=== PATIENT | male | born 1965 | race Caucasian/White ===

== ENCOUNTER 2023-03-09 05:26 | Emergency (ER) | payer BC ==
[~2023-03-09] VITALS: Ht 172.7 cm; Wt 105.1 kg
[2023-03-09 05:44] VITALS: TEMP 98.6
[2023-03-09] MEDS ORDERED: atenolol 25mg tablet PO ONE (08:20)
[2023-03-09 08:26] LABS: BASOPHILS % (AUTO) 0.9 % (0-1); EOSINOPHILS # (AUTO) 0.1 X10'3 (0-0.9); EOSINOPHILS % (AUTO) 3.1 % (0-6); HEMOGLOBIN 15.2 g/dl (14.0-17.9); LYMPHOCYTES # (AUTO) 1.3 X10'3 (1.1-4.8); LYMPHOCYTES % (AUTO) 28.1 % (21-51); MEAN CORPUSCULAR HEMOGLOBIN 29.6 PG (27.0-31.0); MEAN CORPUSCULAR HGB CONC 33.8 g/dL (33.0-36.5); MEAN CORPUSCULAR VOLUME 87.7 FL (78-98); MEAN PLATELET VOLUME 7.5 FL (7.4-10.4); MONOCYTES # (AUTO) 0.5 X10'3 (0-0.9); MONOCYTES % (AUTO) 10.6 % (2-12); NEUTROPHILS # (AUTO) 2.6 X10'3 (1.8-7.7); NEUTROPHILS % (AUTO) 57.3 % (42-75); PLATELET COUNT 318 X10'3 (140-440); RED BLOOD COUNT 5.13 X10'6 (4.70-6.10); RED CELL DISTRIBUTION WIDTH 13.4 % (11.5-14.5); WHITE BLOOD COUNT 4.6 X10'3 (4.5-11.0)
[2023-03-09 08:41] LABS: ALANINE AMINOTRANSFERASE 48 U/L (12-78); ALBUMIN 3.8 G/DL (3.4-5.0); ALBUMIN/GLOBULIN RATIO 0.9 (1.1-1.5); ALKALINE PHOSPHATASE 112 IU/L (46-116); ANION GAP 8 (8-16); ASPARTATE AMINO TRANSFERASE 28 U/L (10-37); BILIRUBIN,TOTAL 0.6 MG/DL (0.1-1.0); BLOOD UREA NITROGEN 14 MG/DL (7-18); BUN/CREATININE RATIO 13.1 (10.0-20.0); CALCIUM 9.2 MG/DL (8.5-10.1); CHLORIDE 105 MMOL/L (99-107); CREATININE 1.07 MG/DL (0.60-1.10); GLUCOSE 146 MG/DL (70-104); SODIUM 141 MMOL/L (135-145); TOTAL CARBON DIOXIDE 27.6 MMOL/L (24-32); TOTAL PROTEIN 8.2 G/DL (6.4-8.2); eCRCL 75 ML/MIN; eGFR 71 ML/MIN
[2023-03-09 08:48] LABS: PRO BRAIN NATRIURETIC PEPTIDE < 30 PG/ML (0-125)
[2023-03-09 09:16] VITALS: BP 149/90; PULSE 77; RESP 18; O2SAT 97
== END 2023-03-09 09:16 | disposition home or self-care (01) ==
LOC: ER 05:29
DX: R00.2 Palpitations (principal)
CPT/HCPCS: 36415; 71045; 80053; 83880; 84484; 85025; 93005; 99285

== ENCOUNTER 2023-03-27 05:53 | Day surgery (SDC) | payer BC ==
[2023-03-26 08:50] LABS: BASOPHILS % (AUTO) 0.9 % (0-1); EOSINOPHILS # (AUTO) 0.1 X10'3 (0-0.9); EOSINOPHILS % (AUTO) 2.7 % (0-6); HEMATOCRIT 46.3 % (42.0-52.0); HEMOGLOBIN 15.5 g/dl (14.0-17.9); LYMPHOCYTES # (AUTO) 1.1 X10'3 (1.1-4.8); LYMPHOCYTES % (AUTO) 25.4 % (21-51); MEAN CORPUSCULAR HEMOGLOBIN 29.5 PG (27.0-31.0); MEAN CORPUSCULAR HGB CONC 33.5 g/dL (33.0-36.5); MEAN CORPUSCULAR VOLUME 88.1 FL (78-98); MEAN PLATELET VOLUME 7.4 FL (7.4-10.4); MONOCYTES # (AUTO) 0.7 X10'3 (0-0.9); MONOCYTES % (AUTO) 16.3 % (2-12); NEUTROPHILS # (AUTO) 2.4 X10'3 (1.8-7.7); NEUTROPHILS % (AUTO) 54.7 % (42-75); PLATELET COUNT 261 X10'3 (140-440); RED BLOOD COUNT 5.26 X10'6 (4.70-6.10); WHITE BLOOD COUNT 4.3 X10'3 (4.5-11.0)
[2023-03-26 09:00] LABS: ALBUMIN 4.1 G/DL (3.4-5.0); ANION GAP 10 (8-16); BLOOD UREA NITROGEN 12 MG/DL (7-18); BUN/CREATININE RATIO 12.9 (10.0-20.0); CALCIUM 9.3 MG/DL (8.5-10.1); CHLORIDE 105 MMOL/L (99-107); CREATININE 0.93 MG/DL (0.60-1.10); GLUCOSE 132 MG/DL (70-104); POTASSIUM 4.3 MMOL/L (3.5-5.1); SODIUM 143 MMOL/L (135-145); TOTAL CARBON DIOXIDE 27.9 MMOL/L (24-32); eGFR 84 ML/MIN
[2023-03-26 09:04] LABS: APTT 27 SECONDS (22-32); INR 1.1 INR; PROTHROMBIN TIME 11.9 SECONDS (9.0-12.0)
[2023-03-26 10:18] LABS: PLATELET ESTIMATE NORMAL; TOTAL CELLS COUNTED 100
[2023-03-27] VITALS (11 sets, daily range): BP systolic 126–159; BP diastolic 79–95; PULSE 77–97; RESP 13–16; TEMP 98; O2SAT 93–98
[2023-03-27] MEDS ORDERED: normal saline 1,000 ML IV SCH (06:25)
[2023-03-27] MEDS ORDERED: diphenhydrAMINE 25mg capsule PO PRN (06:25)
[2023-03-27] MEDS ORDERED: DILT120C77 PO (06:29)
[2023-03-27] MEDS ORDERED: DIPH25CA83 PO (06:29)
[2023-03-27] MEDS ORDERED: FAMO20TA8 PO (06:29)
[2023-03-27] MEDS ORDERED: PRED20TA PO (06:29)
[2023-03-27] MEDS ORDERED: ROSU20TA73 PO (06:29)
[2023-03-27] MEDS ORDERED: ATEN25TA PO (06:29)
[2023-03-27] MEDS: LORazepam 0.5 MG tablet PO PRN (06:54)
[2023-03-27] MEDS: hydrocortisone sod succ/PF 100mg/2ml inj. IV PRN (07:12)
[2023-03-27] MEDS ORDERED: LIDOcaine 1% (10mg/ml) 2ml vial ONE (07:30)
[2023-03-27] MEDS ORDERED: iohexol 350MG/ML 100ml bottle IV ONE (07:31)
[2023-03-27] MEDS ORDERED: midazolam 1 mg/ML 2ml injection ONE ×2 (07:31→08:23)
[2023-03-27] MEDS ORDERED: fentaNYL/PF 50MCG/1 ML 2ML syringe ONE ×2 (07:31→08:23)
[2023-03-27] MEDS ORDERED: nitroGLYCERIN 500mcg/5mL D5W 5 ML IV ONE (07:31)
[2023-03-27] MEDS ORDERED: heparin 1,000unit/ml 10ml vial 10 ML ONE (07:31)
[2023-03-27] MEDS ORDERED: iohexol 350 MG/ML 50ML vial IV ONE (07:31)
[2023-03-27] MEDS ORDERED: verapamil 2.5 mg/ml inj IV ONE (07:31)
[2023-03-27] MEDS ORDERED: normal saline 1000ml 1,000 ML IV SCH (10:00)
== END 2023-03-27 13:20 | disposition home or self-care (01) ==
LOC: SSTAY O 05:53
PROVIDERS: ATTEND Internal Medicine Cardiovascular Disease
DX: R94.39 Abnormal result of other cardiovascular function study (principal); I25.10 Atherosclerotic heart disease of native coronary artery without angina pectoris; I10 Essential (primary) hypertension; I47.10 Supraventricular tachycardia, unspecified; E78.5 Hyperlipidemia, unspecified; Z96.643 Presence of artificial hip joint, bilateral; Z79.82 Long term (current) use of aspirin; Z79.899 Other long term (current) drug therapy; Z90.49 Acquired absence of other specified parts of digestive tract; Z98.890 Other specified postprocedural states; Z72.89 Other problems related to lifestyle; Z88.2 Allergy status to sulfonamides; Z91.041 Radiographic dye allergy status; Z79.01 Long term (current) use of anticoagulants
CPT/HCPCS: 36415; 80048; 85025; 85610; 85730; 93005; 93458; 99152; 99153; J1644; J1720; J2250; J3010; J3490; J7030; Q9967; 85007; A4615; A6258; A6402; A6449; C1725; C1894